=== PATIENT | female | born 1990 | race Caucasian/White ===

== ENCOUNTER → 2017-02-28 16:06 | Outpatient (CLI) | payer OTHER | END | disposition home or self-care (01) | LOC: D.CT 16:06 | DX: S42.002A Fracture of unspecified part of left clavicle, initial encounter for closed fracture (principal); S42.001A Fracture of unspecified part of right clavicle, initial encounter for closed fracture ==

== ENCOUNTER 2017-04-07 05:06 | Day surgery (SDC) | payer MEDICAID ==
[~2017-04-07] VITALS: Ht 167.6 cm; Wt 93.0 kg
[~2017-04-07 05:06] MED LIST: MONONESSA1 TAB PO
[2017-04-07] MEDS ORDERED: HYDROCODONE-APA1 TAB PO (06:22)
[2017-04-07 06:24] VITALS: BP 108/77; Ht 167.6 cm; Wt 93.0 kg
[2017-04-07 06:52] LABS: HCG URINE NEGATIVE (NEGATIVE)
[2017-04-07 07:11] LABS: HEMATOCRIT 37.1 % (36.0-48.0); MCH 29.5 pg (26.0-34.0); MCHC 32.3 g/dL (31.0-37.0); MCV 91.2 fL (80.0-100.0); MEAN PLATELET VOLUME 9.8 fL (7.4-10.4); RBC 4.07 10x6/uL (4.00-5.40); RDW 13.4 % (11.5-14.5); WBC 17.8 10x3/uL (4.8-10.8)
[2017-04-07] MEDS ORDERED: DILAUDID4 MG PO (09:59)
--- NOTE | 2017-04-07 11:24 | NUR ---
IV DC WITH CATHER TIP INTACT
--- NOTE | 2017-04-07 19:16 | OP ---
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 PROCEDURES: 1. Open reduction internal fixation of distal clavicle fracture -- chronic. 2. AC joint reconstruction. SURGEON: Paloma Barroso MD. ANESTHESIA: General. INTRAOPERATIVE COMPLICATIONS: None. SUMMARY OF PATHOLOGIC FINDINGS: Distal clavicle remained partially attached to the coracoid by way of scar tissue. The more medial aspect of the clavicle was not attached at all, was essentially floating. This required complete removal of the distal clavicle and then repairing it back to the residual distal clavicle more medially by virtue of an Arthrex plate that actually had to be cut to form intraop and then double TightRope was utilized through the plate to stabilize the AC joint. OPERATIVE SUMMARY IN DETAIL: After obtaining the appropriate preoperative orthopedic surgery consent as well as anesthetic consultation, evaluation and clearance, the patient was brought to the operating room and placed on the operating table in supine position. After general laryngeal mask was administered, the patient was placed in the beach chair position. All pressure points were well padded. She was held firmly to the operating table using the vacuum pack suction system. Right upper extremity and shoulder were then prepped and draped in a routine sterile fashion. Incision was made from the medial aspect of the distal clavicle over the clavicle fracture and out to the AC joint. Dissection was carried down around the clavicle and residual distal clavicle. The residual distal clavicle was completely removed. Small sagittal saw was used to make a transverse cut for essentially autograft to get back on to the residual clavicle. Residual clavicle was likewise cut and was put into place and held with a provisional K-wire. The distal clavicle plate from Arthrex was now somewhat misshapened for the new form of the clavicle. For this reason, the shortest distal clavicle locking plate was cut transversely between the last and medial hole, so that it would all fit nicely on the clavicle. This was then placed across new graft on site and serially and sequentially, the distal part of the clavicle was stabilized and then 2 compression screws utilized to compress across the fracture site itself. Having completed this, dog bone AC reconstruction was utilized to the top of the coracoid under direct visualization and with the aid of fluoroscopy. It was pulled through the coracoid and then the drill hole through the plate was created. This was pulled through and then the locking button was placed through the plate and this was OPERATIVE REPORT [id number] SHERRI CHAUDHARI then tied while the coracoid and clavicle were held together with a bone clamp. Having completed this, final radiographs were taken. Wound was copiously irrigated. Periosteum and platysma were sewn together as one unit over the entire collarbone laterally using #1 Vicryl. This was then followed by 2-0 Vicryl and skin arvin. Sterile dressings were applied. The patient was awakened, taken to recovery room in stable condition. All final needle and sponge counts were correct. TRANSINT:[id number] Voice Confirmation ID: [id number] DOCUMENT ID: [id number] CHIO OLSON, PALOMA DURHAM at 1915 CC: [id number] DICTATION DATE: 04/07/17 1004 FUNCTIONAL MANAGER: 04/07/17 1453 [facility] 04/07/17 [facility] [address] [place] [address]
== END 2017-04-07 11:38 | disposition home or self-care (01) ==
LOC: D.OPS 05:06
PROVIDERS: Anesthesiology; Orthopaedic Surgery
DX: S42.002A Fracture of unspecified part of left clavicle, initial encounter for closed fracture (principal); F17.200 Nicotine dependence, unspecified, uncomplicated; E66.9 Obesity, unspecified; Z01.812 Encounter for preprocedural laboratory examination

== ENCOUNTER 2019-04-11 12:25 | Emergency (ER) | payer SELFPAY ==
[2017-04-07 06:24] VITALS: BMI 33.1
[~2019-04-11 12:25] MED LIST changes: +DILAUDID4 MG PO; +HYDROCODONE-APA1 TAB PO
== END 2019-04-11 12:33 | disposition left against medical advice (07) ==
LOC: D.ER 12:25
DX: Z02.9 Encounter for administrative examinations, unspecified (principal)